=== PATIENT | male | born 1985 | race Two or more races ===

== ENCOUNTER 2018-11-15 11:48 | Emergency (ER) | payer OTHER ==
[~2018-11-15] VITALS: Ht 175.3 cm; Wt 97.5 kg
[2018-11-15 11:55] VITALS: BP 127/86
[2018-11-15] MEDS ORDERED: NKM (11:59)
--- NOTE | 2018-11-15 12:00 | NUR ---
ED Nurse Note: Patient walked into ED c/o upper abdominal pain that started at 1400 on 11/14/18, states a pressure like pain, denies any nausea or vomiting today, states that he had 1 episode of diarrhea alst night. patient is alert and oriented x4, ambulatory with a steady gait, VSS.
[2018-11-15] MEDS ORDERED: Dicyclomine HCl 10mg/5ml oral soln ORAL ONE (13:00)
[2018-11-15] MEDS ORDERED: Lidocaine 2% Visc 15ml soln ORAL ONE (13:00)
[2018-11-15] MEDS ORDERED: Mylanta II UD 30ml ORAL ONE (13:00)
--- NOTE | 2018-11-15 13:35 | Emergency Room Report ---
History of Present Illness General Chief Complaint: Abdominal Pain Source: Patient Present Illness HPI 33-year-old male presents to the emergency department complaining of 5 out of 10 severity burning epigastric pain since last night. Patient reports onset after taking Advil for headache that he had. Patient denies nausea, vomiting, fevers, chills, constipation or diarrhea. He denies radiation or migration of his pain he denies previous similar symptoms in the past. Patient denies recent travel or ill contacts with similar symptoms. He denies blood in the stool or black tarry stools. He denies significant past medical history. Allergies: Coded Allergies: No Known Allergies (Unverified , 11/15/18) Patient History Past Medical History: see triage record Past Surgical History: none Pertinent Family History: none Immunizations: UTD Reviewed Nursing Documentation: PMH: Agreed; PSxH: Agreed Nursing Documentation-PMH Past Medical History: No Stated History Review of Systems All Other Systems: negative except mentioned in HPI Physical Exam Vital Signs Date Time Temp Pulse Resp B/P (MAP) Pulse Ox O2 Delivery O2 Flow Rate FiO2 11/15/18 11:55 98.8 16 127/86 94 Room Air 11/15/18 11:55 66 Sp02 EP Interpretation: reviewed, normal General Appearance: no apparent distress, alert, GCS 15, non-toxic Head: normocephalic, atraumatic Eyes: bilateral eye normal inspection, bilateral eye PERRL ENT: hearing grossly normal, normal voice Neck: full range of motion Respiratory: chest non-tender, lungs clear, normal breath sounds, no wheezing, speaking full sentences Cardiovascular #1: regular rate, rhythm Gastrointestinal: normal bowel sounds, non tender, soft, no mass, non-distended , no guarding, no hernia Rectal: deferred Genitourinary: normal inspection, no CVA tenderness Musculoskeletal: gait/station normal, normal range of motion Neurologic: alert, oriented x3, responsive, motor strength/tone normal, sensory intact, normal gait, speech normal, grossly normal Psychiatric: judgement/insight normal Skin: no rash Lymphatic: no adenopathy Medical Decision Making PA Attestation Dr. German is my supervising Physician whom patient management has been discussed with. Diagnostic Impression: Primary Impression: Abdominal pain Qualified Codes: R10.13 - Epigastric pain Additional Impression: Gastritis Qualified Codes: K29.70 - Gastritis, unspecified, without bleeding ER Course 33-year-old male presents to the emergency department complaining of 5 out of 10 severity burning epigastric pain since last night. Patient reports onset after taking Advil for headache that he had. Patient denies nausea, vomiting, fevers, chills, constipation or diarrhea. He denies radiation or migration of his pain he denies previous similar symptoms in the past. Patient denies recent travel or ill contacts with similar symptoms. He denies blood in the stool or black tarry stools. He denies significant past medical history. Ddx considered but are not limited to GE, colitis, acute appendicitis, SBO, H.pylori, Gastritis, PNA, pericarditis just to name a few. Vital signs: pt. is afebrile, H&PE are most consistent with Gastritis - no evidence to suggest acute abdomen on physical exam. ORDERS: -None required at this time, the dx is clinical. ED INTERVENTIONS: -Mylanta PO -Lidocaine PO -Pepcid PO -Bentyl PO After above interventions this patient successfully completed oral fluid challenge without nausea or vomiting. -I do not identify an emergent condition at this time. With current presentation , pt. is stable for close outpatient follow up and conservative treatment. D/ w pt. to return promptly to ED with worsening or new symptoms.- Pt. (and or responsible constitution party) verbalizes' understanding and agreement with proposed treatment plan.proposed treatment plan. DISCHARGE: At this time pt. is stable for d/c to home. Will provide printed patient care instructions, and any necessary prescriptions. Care plan and follow up instructions have been discussed with the patient prior to discharge. Last Vital Signs Date Time Temp Pulse Resp B/P (MAP) Pulse Ox O2 Delivery O2 Flow Rate FiO2 11/15/18 11:57 66 16 Room Air 11/15/18 11:55 98.8 127/86 (100) 94 Disposition: HOME, SELF-CARE Condition: Stable Referrals: NOT CHOSEN IPA/MD,REFERRING (PCP) Patient Instructions: Food Choices for Gastroesophageal Reflux Disease, Adult, [id number], Gastritis, Adult, Gastroesophageal Reflux Disease, Adult Additional Instructions: Take medications as directed. Follow up with a Primary Care Provider in 3-5 days, even if your symptoms have resolved. Return sooner to ED if new symptoms occur, or current symptoms become worse. - Please note that this Emergency Department Report was dictated using [employer]th grade teacher technology software, occasionally this can lead to erroneous entry secondary to interpretation by the dictation equipment. Violet More Nov 15, 2018 13:35
[2018-11-15] MEDS ORDERED: ZANTAC150 MG ORAL (13:36)
[2018-11-15] MEDS ORDERED: OMEPRAZOLE20 M3 ORAL (13:36)
[2018-11-15 13:50] VITALS: BP 119/80
--- NOTE | 2018-11-15 13:50 | NUR ---
ER DISCHARGE NOTE: Patient is cleared to be discharged per ERMD, pt is aox4, on room air, with stable vital signs. pt was given dc and prescription instructions, pt was able to verbalize understanding, pt id band removed without complications. pt is able to ambulate with steady gait. pt took all belongings.
--- NOTE | 2018-11-15 15:00 | NUR ---
Note undone in EDM - 11/15/18 at 1500 by BPARENTELA ER DISCHARGE NOTE: Patient is cleared to be discharged per ERMD, pt is aox4, on room air, with stable vital signs. pt was given dc and prescription instructions, pt was able to verbalize understanding, pt id band removed without complications. pt is able to ambulate with steady gait. pt took all belongings.
== END 2018-11-15 13:50 | disposition home or self-care (01) ==
LOC: EMR 12:34
DX: K29.70 Gastritis, unspecified, without bleeding (principal)
CPT/HCPCS: 99282